=== PATIENT | female | born 1990 | race Caucasian/White ===

== ENCOUNTER 2023-07-25 18:51 | Emergency (ER) | payer SELFPAY ==
[2023-07-25 18:55] VITALS: BP 141/92
--- NOTE | 2023-07-25 19:26 | EDRN ---
she was bitten by a cat the was not up to date on her shots. Pt is a behavior clinician. Pt states that she came for a rabies booster. Pt unsure what her titer is. No signs infection at bite site. No swelling or drainage or redness. Pt cleansed it after
the bite yesterday.
[2023-07-25 19:31] VITALS: BMI 22.6
--- NOTE | 2023-07-25 19:43 | ED.SKININJ ---
HPI-Injury
General
Chief Complaint: Bite
Source: patient
Exam Limitations: none
Time Seen by Provider: 07/25/23 19:14
Nursing documentation reviewed up to this point in time: agreed with
Travel History
Have you had any contact with someone who has COVID-19?: No
Do you have any symptoms of coronavirus? Fever > 100 degrees, chills, cough, shortness of breath, sore throat, loss of taste or smell, muscle aches, or headache?: No
History of Present Illness-Injury
Initial Injury comments:
Patient is a 33-year-old man urine who was bitten to her left thumb yesterday at work. She has been previously vaccinated for rabies in 2018. She is concerned however because cat has been ill for the past year and she recently diagnosed With
cancer. Reports Patient Had previous rabeis vaccines but many years ago. She did mention quarantine in the Order did not seem willing. She does request rabies vaccine. She denies any redness to her left thumb denies any pain swelling. Denies
any fevers.
Past History
Past History
ED Past Medical History: None
ED Past Surgical History: None
Social History
Tobacco: Non-smoker
Personal: Single
Living: with family
Employment: Employed
Review of Systems
Review of Systems
Allergies reviewed?: Yes
All Other Systems: ROS reviewed and negative except as documented in HPI and ROS
Constitutional: Reports no symptoms; Denies fever, fatigue or chills
Musculoskeletal: Reports other (right thumb cat bite )
Phy Exam
General Physical Exam
General Presentation: no apparent distress
General age: appears stated age
General Skin: warm and dry
General Habitus: normal
General Mental: alert
General Hydration: appears well hydrated
Neurological Exam
Neurological Exam: alert and oriented x3
[place] Coma Scale
Eye Opening: Spontaneous
Verbal Response: Oriented
Motor Response: Obeys Commands
GCS Total Score: 15
Musculoskeletal Exam
Musculoskeletal Exam: other (Left thumb with normal inspection no evidence of infection no visible Bite or puncture full flexion extension nonpainful no erythema)
Skin Exam
Skin Exam: normal color and warm/dry
Psychiatric Exam
Psychiatric Exam: normal mood/affect
Course
Orders/Labs/Results
Orders:
Orders
07/25/23 20:13
Tetanus/Diphth/Acelpertussis [Adacel] 0.5 ml IM .ONCE ONE
07/25/23 20:30
Rabies Vaccine (Pcec)/Pf [Rabavert Rabies Vacc W-Diluent] 2.5 unit IM .ONCE ONE
Vital Signs
Initial and Last Documented VS:
Initial Vital Signs
Temp Pulse Resp BP Pulse Ox
98 F 68 16 141/92 100
07/25/23 18:55 07/25/23 18:55 07/25/23 18:55 07/25/23 18:55 07/25/23 18:55
Last Documented Vital Signs
Temp Pulse Resp BP Pulse Ox
98 F 66 16 128/83 100
07/25/23 18:55 07/25/23 20:45 07/25/23 20:45 07/25/23 20:45 07/25/23 20:45
MDM/Problems Addressed
Differential Diagnosis Includes:
not limited to saeid bite.
MDM/Problems Addressed:
Patient is a [employer] who has has been previously vaccinated with positive titers. She reports she was vaccinated in 2018 in [employer] school and has had positive titers since therefore patient only requires vaccine on day 0 and 3. Patient
was given 1 dose here in the ER. She will be out of town and will get her third dose out of town.
There is no visible injury to left thumb but she does report bite to this thumb. Patient does request antibiotic prescription ago does not want to start currently. There is no evidence infection on exam. She is allergic to Amoxil therefore will
do a prescription for BActrim and Flagyl. patient does request paper scripts as she will be out of town and as there is no evidence infection on exam now she has no symptoms she does not wish to start antibx at this time. I Did educate her on the
risks infection however on exam there is no evidence at this time.
*Pulse Oximetry
Patient hypoxic: no
*Critical Care Note
Total Time (30-74mins, 75-104mins- exclusive of procedures): Not Applicable
ED Attending Note
-
Portions of this chart may have been created with voice recognition software.� Occasional wrong word or��sound alike� substitutions may have occurred due to the inherent limitations of voice recognition software.
Discharge Plan
Departure
Patient Disposition: Home (Routine Discharge)
Date of Disposition: 07/25/23
Time of Disposition: 19:59
Patient with high blood pressure during this ER visit?: Yes
Condition: Fair
Covid-19: Not Applicable
Discharge Problem:
Cat bite, encounter for rabies vaccine
Instructions: Animal Bites (DC), BLOOD PRESSURE
Prescriptions:
New
sulfamethoxazole-trimethoprim [Bactrim DS] 800-160 mg tablet
1 tab PO BID Qty: 10 0RF
metronidazole 500 mg tablet
500 mg PO TID Qty: 15 0RF
No Action
clindamycin HCl 150 MG capsule
150 mg PO QID Qty: 28 0RF
sulfamethoxazole-trimethoprim 800 MG/160 MG tablet
1 tab PO BID Qty: 14 0RF
Referrals:
Atul Juarze MD [Family Provider] -
Activity Restrictions/Additional Instructions:
As discussed you received rabies vaccine IM here in the ER however you will need additional vaccine on day 3.
Also prescriptions were printed and given to you for Bactrim, 1 tablet twice daily for the next 5 days plus Flagyl 500 mg 3 times a day for the next 5 days. Return if any signs of infection increased pain swelling redness drainage red streaking
fever chills
Interventions
Interventions:
*Risk Screen - Suicide Last Done: 07/25/23 18:55
*General Assessment Last Done: 07/25/23 19:22
*Neglect/Abuse Screening Last Done: 07/25/23 18:55
ED- Fall Risk Assessment Last Done: 07/25/23 19:22
*ED COVID-19 Vaccine History Last Done: 07/25/23 19:22
*Nursing Disposition Last Done: 07/25/23 20:45
ED-Skin Assessment Last Done: 07/25/23 19:22
Discharge Date and Time
Discharge Date/Time: 07/25/23 20:45
[2023-07-25] MEDS: RABAVERT RABIES VACC W-DILUENT 2.5 UNIT IM (20:31)
[2023-07-25] MEDS: ADACEL 0.5 ML IM (20:39)
[2023-07-25 20:45] VITALS: BP 128/83
== END 2023-07-25 20:45 | disposition home or self-care (01) ==
LOC: EMR 18:51
PROVIDERS: EMERGENCY PHYSICIAN Student in an Organized Health Care Education/Training Program; FAMILY PHYSICIAN Family Medicine
DX: Z20.3 Contact with and (suspected) exposure to rabies (principal); Z23 Encounter for immunization; W55.01XA Bitten by cat, initial encounter; Y99.0 Civilian activity done for income or pay
CPT/HCPCS: 99282; 90471; 96372; 90675; 90715